=== PATIENT | female | born 1990 | race Caucasian/White ===

== ENCOUNTER → 2017-05-29 | Outpatient (CLI) | payer OTHER ==
[~2017-05-29] MED LIST: AZITTAB PO; BCPILLS PO; IBUP-1050 PO; MULTTAB PO
[2017-05-29 18:24] LABS: CHOLESTEROL/HDL RATIO 2.8
== END | disposition home or self-care (01) ==
LOC: C.LABPVFM 13:16
PROVIDERS: ATTEND Nurse Practitioner Family
DX: Z00.00 Encounter for general adult medical examination without abnormal findings (principal)

== ENCOUNTER → 2017-06-24 | Outpatient (CLI) | payer OTHER | END | disposition home or self-care (01) | LOC: C.PAPS 08:46 | PROVIDERS: ATTEND Obstetrics & Gynecology | DX: Z01.419 Encounter for gynecological examination (general) (routine) without abnormal findings (principal) ==

== ENCOUNTER → 2017-11-27 | Outpatient (CLI) | payer OTHER ==
[2017-11-27 10:07] LABS: BASO % 0.5 %; BASO ABS # 0.03 K/uL (0-0.2); EOS % 2.4 %; EOS ABS # 0.15 K/uL (0-0.5); HEMOGLOBIN 16.6 g/dL (12.0-16.0); IG# 0.01 K/uL (0.00-0.02); LYMPH % 48.9 %; LYMPH ABS # 3.03 K/uL (1.2-3.4); MEAN CELL VOLUME 98.9 fL (80-100); MEAN CORPUSCULAR HEMOGLOBIN 34.9 pg (25-34); MEAN CORPUSCULAR HGB CONC 35.3 g/dl (32-36); MEAN PLATELET VOLUME 11.1 fL (7.4-10.4); MONO % 4.7 %; MONO ABS # 0.29 K/uL (0.11-0.59); NEUT % 43.3 %; NEUT ABS # 2.69 K/uL (1.4-6.5); PLATELET COUNT 178 K/uL (130-400); RED CELL DISTRIBUTION WIDTH SD 42.9 fL (36.4-46.3)
[2017-11-27 10:18] LABS: PTT PATIENT 27.7 SECONDS (21.0-31.0)
[2017-11-27 10:27] LABS: BLOOD UREA NITROGEN 11 mg/dl (7-18); CALCIUM 9.6 mg/dl (8.5-10.1); CARBON DIOXIDE 27 mmol/L (21-32); CREATININE 0.76 mg/dl (0.60-1.20); GLUCOSE 73 mg/dl (70-99); POTASSIUM 3.7 mmol/L (3.5-5.1); SODIUM 140 mmol/L (136-145)
== END | disposition home or self-care (01) ==
LOC: C.LAB 09:22
PROVIDERS: ATTEND Physician Assistant
DX: Z01.818 Encounter for other preprocedural examination (principal); M79.89 Other specified soft tissue disorders

== ENCOUNTER → 2017-12-08 | Day surgery (SDC) | payer OTHER ==
[2017-11-27 10:04] VITALS: Ht 167.6 cm; Wt 61.4 kg
[~2017-12-08] VITALS: Ht 167.6 cm; Wt 61.4 kg
[~2017-12-08] MED LIST changes: +ACETAMINOPHEN 325 MG TAB PO PRN; +ACETAMINOPHEN IV 1,000 MG in EMPTY BAG 0 ML IV PRN; +ACETAMINOPHEN IV 650 MG in EMPTY BAG 0 ML IV PRN; +ATROPINE SULFATE 0.1 MG/ML 5ML SYR IV PRN; -AZITTAB PO; +BUPIVACAINE 0.25% 30 ML VIAL ONE; +CEFAZOLIN 2000MG IV PUSH 15 ML IV SCH; +EpHEDrine SULFATE INJ 50 MG/ML AMP IV PRN; +FENTANYL CITRATE INJ 50 MCG/1 ML 2 ML VIAL ONE; -IBUP-1050 PO; +LACTATED RINGER'S 1000ML 1,000 ML IV SCH; +LIDOCAINE HCL 1% 20 ML VIAL ONE; +LIDOCAINE HCL 2% 2 ML VIAL (20MG/ML) ONE; +LIDOCAINE/EPINEPHRINE 1% 20 ML VIAL ONE; +METOCLOPRAMIDE HCL INJ 5 MG/ML 2 ML VIAL IV PRN; +MIDAZOLAM HCL 1 MG/ML 2ML VIAL ONE; -MULTTAB PO; +ONDANSETRON INJ 2 MG/ML 2 ML VIAL IV PRN; +ONDANSETRON INJ 2 MG/ML 2 ML VIAL ONE; +OXYCODONE/ACETAMINOPHEN 5-325 TAB PO PRN; +PROPOFOL IV EMULSION 10 MG/ML 20 ML VIAL IV ONE; +SODIUM CHLORIDE 0.9% 1000ML 1,000 ML IV SCH
--- NOTE | 2017-12-08 09:20 | History & Physical Bridge - [place] ---
H&P Re-Evaluation Bridge Note: I have examined the patient, reviewed the History & Physical and in the interval since the performance of the History & Physical I have noted the following changes of clinical significance: No changes noted
--- NOTE | 2017-12-08 10:14 | [facility] Post Operative Brief Note ---
Immediate Operative Summary Operative Date Dec 08, 2017. Pre-Operative Diagnosis Painful Nodule scar Post-Operative Diagnosis Same as pre-op Procedure(s) Performed Excision painful nodule along scar Surgeon Research Development Manager Surgeon(s) Lazaro MCINTOSH Estimated Blood Loss 1ML Findings Consistent with Post-Op Diagnosis Specimens A. Painful nodule scar 2 cm Anesthesia Type MAC Complication(s) none Disposition Disposition: Surgical ICU
--- NOTE | 2017-12-08 10:25 | Discharge Instructions ---
Discharge Instructions Date of Service Dec 08, 2017. Admission Reason for Admission: Soft Tissue Mass Discharge Discharge Diagnosis / Problem: soft tissue mass Discharge Goals Goal(s): Decrease discomfort Activity Recommendations Activity Limitations: as noted below ACTIVITY RECOMMENDATIONS: __Normal activities _x_No bending, lifting or straining __No driving __Driving allowed when you are off pain medications _x_Walking permitted __You should have help at home for ___ days DRESSINGS: __No dressings required __Keep dressings dry/in place until first office visit _x_Remove dressings _in 2 days__ and leave dressings off _x_Apply ice _2-3__ days. Aim for icing area 20 minutes at a time, as often as you can while awake __Remove dressings and reapply garment __Apply antibiotic ointment (Bacitracin, Neosporin, etc) to wounds 3-4 times/ day for 10 days BATHING: _x_Keep dressings dry __Sponge bathing permitted _x_Showering permitted in 48 hours. Ok to let soapy water run over the incision , gently pat dry. No lotions/ointment on incision _x_No swimming, hot tubs or soaking in a tub MEDICATIONS: Resume previous medications unless instructed otherwise by your surgeon. _x_Do not use aspirin, Motrin, Advil or Ibuprofen as these may promote bleeding. Please use Tylenol. _x_Prescription(s) provided:pain medication was provided at your last office visit. OTHER INSTRUCTIONS: __Record drain output 2-3 times per day SPECIAL CARE INSTRUCTIONS: * It is normal to have a mild fever after surgery. If your temperature is higher than 101.5 degrees F, please call the office at [phone]. * Constipation is a typical side effect of pain medication. An over-the- counter stool softener will help relieve this. * Leaking around surgical drains may occur and should not cause concern. Sometimes these drains become clogged. If this happens, remove the bulb and milk the clot out of the tube, then replace the bulb. * Drainage from wounds after liposuction is normal and should be expected. Garments will become soiled. You should protect furniture and bedding. This drainage should mostly subside within 2-3 days. Leave garments in place unless instructed to remove them. * If you have unusual drainage from a wound or are concerned you have an infection or have any questions or concerns, please call the office at [phone]. FOLLOW UP VISIT: If not already scheduled, please call the office, , when you return home after surgery to schedule an appointment to be seen in _14__ days. . Current Hospital Diet Patient's current hospital diet: Discharge Diet Recommended Diet: Regular Diet Procedures Procedures Performed: Excision painful nodule along scar Pending Studies Studies pending at discharge: yes List of pending studies: pathology Medical Emergencies . Who to Call and When: Medical Emergencies: If at any time you feel your situation is an emergency, please call 911 immediately. . Non-Emergent Contact Non-Emergency issues call your: Primary Care Provider, Surgeon . "Provider Documentation" section prepared by Corrina Paige. . VTE Core Measure Inpt VTE Proph given/why not?: SCD's [place] Drug Monitoring Program Search Results: no issues identified
--- NOTE | 2017-12-08 10:48 | Anesthesia Progress Nt - [facility] ---
Anesthesia Post Op Note Date & Time Dec 08, 2017 at 10:48 Vital Signs Pain Intensity: 0 Vital Signs Past 12 Hours Date Time Temp Pulse Resp B/P (MAP) Pulse Ox O2 Delivery O2 Flow Rate FiO2 12/08/17 10:18 36.3 56 16 94/58 (70) 99 Room Air 12/08/17 09:10 36.6 56 16 98/59 (72) 100 Room Air Notes Mental Status: alert / awake / arousable, participated in evaluation Pt Amnestic to Procedure: Yes Nausea / Vomiting: adequately controlled Pain: adequately controlled Airway Patency, RR, SpO2: stable & adequate BP & HR: stable & adequate Hydration State: stable & adequate Anesthetic Complications: no major complications apparent
[2017-12-08 10:50] VITALS: BP 87/54; PULSE 50; O2SAT 97
--- NOTE | 2017-12-08 10:51 | OPERATIVE REPORT ---
DATE OF OPERATION: 12/08/2017 PREOPERATIVE DIAGNOSIS: Painful soft tissue mass, left lower abdomen. POSTOPERATIVE DIAGNOSIS: Same. PROCEDURE: Excision of painful nodule along scar left abdomen. SURGEON: Dr. Jacki Heller. SCREENING UNIT REGISTERED NURSE: Corrina Paige PA-C. ANESTHESIA: Local with sedation. COMPLICATIONS: None. INDICATION FOR THE PROCEDURE: The patient is a 27-year-old female who is status post section. This was performed about 4 years ago. Over the past 1 year, she has had a nodule on her left lower abdomen along the scar, which has increased in size and has become painful and she desired excisional biopsy. BRIEF DESCRIPTION OF THE PROCEDURE: The risks, benefits and alternatives of the procedure were explained to the patient who agreed and signed consent. She was identified and marked in the preoperative holding area. She was brought to the operating room where she was positioned supine and placed under sedation without incident. Surgical site was prepped and draped sterilely. A timeout procedure was performed. Mixture of 1% lidocaine with epinephrine and 0.25% Marcaine plain was used to anesthetize the area. While the nodularity was palpable superior to the scar, I performed excision of left lateral aspect of the scar as an access point. This was performed using a 15 blade scalpel and the incision was deepened using electrocautery. Scar was passed off as a specimen. Incision was deepened until the palpable nodularity was identified. This was carefully dissected using an Allis clamp and electrocautery to dissect this well circumscribed mass. It was located entirely within soft tissue and did not have any fascial extension. It measured 2 cm in its maximal diameter upon removal. Hemostasis was achieved with electrocautery. Wound was reapproximated using 2-0 Vicryl deep dermal sutures, 3-0 PDS superficial dermal sutures, 4-0 Monocryl running subcuticular suture. Total wound closure length was 5 cm. The procedure was tolerated well. The patient was awakened and transferred to recovery room in satisfactory condition. I attest to the content of the Intraoperative Record and any orders documented therein. Any exception s are noted below.
== END | disposition home or self-care (01) ==
LOC: X.SURG 08:53
PROVIDERS: ATTEND Plastic Surgery
DX: N80.6 Endometriosis in cutaneous scar (principal); F17.200 Nicotine dependence, unspecified, uncomplicated; Z88.2 Allergy status to sulfonamides; Z88.1 Allergy status to other antibiotic agents

== ENCOUNTER 2021-11-28 10:21 | Inpatient (IN) ==
[2021-11-28 10:59] LABS: Basophils # (auto) 0.01 K/uL (0-0.2); Basophils % (auto) 0.1 %; Eosinophils # (auto) 0.06 K/uL (0-0.5); Eosinophils % (auto) 0.9 %; Hematocrit (blood only) 38.7 % (37-47); Hemoglobin 13.4 g/dL (12.0-16.0); Immature Granulocytes # (auto) 0.02 K/uL (0.00-0.02); Immature Granulocytes % (auto) 0.3 %; Lymphocytes # (auto) 1.26 K/uL (1.2-3.4); Lymphocytes % (auto) 18.3 %; Mean Corpuscular Hemoglobin 35.4 pg (25-34); Mean Corpuscular Hgb Conc 34.6 g/dL (32-36); Mean Corpuscular Volume 102.1 fL (80-100); Mean Platelet Volume 10.2 fL (7.4-10.4); Monocytes # (auto) 0.57 K/uL (0.11-0.59); Monocytes % (auto) 8.3 %; Neutrophils # (auto) 4.95 K/uL (1.4-6.5); Neutrophils % (auto) 72.1 %; Platelet Count 225 K/uL (130-400); RDW Coefficient of Variation 12.2 % (11.5-14.5); RDW Standard Deviation 45.5 fL (36.4-46.3); Red Blood Count 3.79 M/uL (4.2-5.4); White Blood Count 6.87 K/uL (4.8-10.8)
[2021-11-28 11:24] LABS: Albumin Globulin Ratio 1.2 (0.9-2); Albumin Level 3.7 gm/dl (3.4-5.0); BUN Creatinine Ratio 14.9 (10-20); Bilirubin,Total 0.6 mg/dl (0.2-1.0); Creatinine Clr Calc Pharmacy 74.2 ml/min; Est GFR (African American) 84.7 ml/min; Est GFR (Non-African American) 73.1 ml/min; Globulin 3.1 gm/dl (2.5-4.0); Potassium 3.6 mmol/L (3.5-5.1); Total Protein 6.8 gm/dl (6.0-8.3)
[2021-11-28] MEDS ORDERED: ONDANSETRON INJ 2 MG/ML 2 ML VIAL IV STA (11:53)
[2021-11-28] MEDS ORDERED: cefTRIAXone SODIUM 2,000 MG/70 ML BAG IV STA (11:53)
[2021-11-28] MEDS ORDERED: KETOROLAC TROMETHAMINE 15 MG/ML VIAL IV STA (11:53)
[2021-11-28] MEDS ORDERED: SODIUM CHLORIDE 0.9% 1000ML 1,000 ML IV ONE (11:53)
--- NOTE | 2021-11-28 12:08 | Emergency Department Note ---
Impression & Plan Acute pyelonephritis, Renal abscess, right ED Provider Note CHIEF COMPLAINT: Flank and abdominal pain, urinary symptoms HISTORY OF PRESENTING ILLNESS: This is a 31-year-old female who presents to the emergency department by private vehicle with complaint of flank and abdominal pain and urinary symptoms that has been ongoing for about 1 week. Patient states about 2-1/2 weeks ago she started to have yeast infection symptoms, this cleared up after taking Diflucan and ankp-evc-ulcevkg miconazole, but then she continued to have urinary pressure. She states about 6 days ago she started to develop pain in her right flank and abdomen that has been progressively getting worse, is worse with movement and better with rest and she describes the pain as a constant dull ache. She currently rates her pain 5/10. She has not taken any Tylenol or ibuprofen today. She has been taking ibuprofen previously which did help with the pain somewhat. She states that she initially saw her PCP and they started her on ciprofloxacin which she has been taking and this is her fifth day of treatment. She notes that she was having some fevers and chills at home and that seemed to improve after starting the Cipro, but her pain has not improved at all. Yesterday she had an outpatient CT scan of the abdomen/pelvis and today she was called by her provider telling her to come to the emergency department for evaluation. She states that the CT scan showed bilateral pyelonephritis. She denies chest pain, chest tightness, shortness of breath, cough or URI symptoms. REVIEW OF SYSTEMS: A complete 10 point review of systems was reviewed with the patient with pertinent positives and negatives as per history of present illness. All else were negative. PAST MEDICAL HISTORY: Depression, anxiety, history of LEEP procedure SOCIAL HISTORY: Lives at home, she is a current everyday smoker ALLERGIES: Reviewed in chart and with the patient PHYSICAL EXAM: CONSTITUTIONAL: Pleasant and cooperative. Nontoxic-appearing and in no acute distress. Mildly dehydrated, but otherwise well appearing and well nourished. HEENT: Normocephalic, atraumatic. Pharynx normal. Tacky mucous membranes. NECK: Supple, full active range of motion without discomfort. RESPIRATORY: Clear to auscultation bilaterally with no wheezing, crackles, rhonchi or stridor. Equal expansion bilaterally. CARDIOVASCULAR: Regular rate and rhythm with no murmurs, rubs or gallops. Normal peripheral perfusion. No edema. GASTROINTESTINAL: Tender to palpation in the right mid and lower abdomen and right flank, no rebound tenderness or guarding. Abdomen is otherwise nontender, soft and nondistended. Bilateral CVA tenderness to percussion, significantly more on the right compared to the left. No palpable masses or HSM. Bowel sounds present in all quadrants. MUSCULOSKELETAL: Full range of motion of all joints without discomfort. INTEGUMENTARY: No rash or other significant dermatologic conditions noted. NEUROLOGIC: Alert and oriented X 4 with normal affect. Normal strength and sensation in all four extremities. Normal speech. Normal gait observed. ED COURSE AND MEDICAL DECISION MAKING: CC: Patient presenting with complaint of flank and abdominal pain with urinary symptoms DIFFERENTIAL DIAGNOSIS: Includes, but not limited to UTI, pyelonephritis, bacteremia/sepsis, dehydration, renal abscess, among others. INTERPRETATION OF LABS: No leukocytosis, no anemia, normal platelets, no significant electrolyte abnormalities, normal renal function, normal liver enzymes and lipase. UA is negative. Urine negative. COVID-19 negative. MEDICATION RECONCILIATION: I attest that I have personally reviewed the patient's current medication list. INITIAL VITAL SIGNS REVIEW: I reviewed the patient's initial vital signs and interpret them as follows: T: Afebrile; BP: Normotensive; HR: Within normal limits; RR: Within normal limits; Pulse Ox: Within normal limits on room air. MDM SUMMARY: Initial orders were placed for labs and urinalysis by nursing staff under critical pathway protocols. Patient was initially evaluated in a triage room due to high volume and long wait times. A history and limited physical exam performed. Patient is alert and oriented, in no acute distress, afebrile and nontoxic- appearing. She does have tenderness to palpation of the right mid lower abdomen and right flank with right CVA tenderness. No acute abdomen. Lab results were reviewed, noting no leukocytosis and a normal renal function. Urinalysis and urine are still pending. Review of the patient's chart noting CT of the abdomen/pelvis from 11/27/2021 which noted bilateral pyelonephritis, right greater than left with a few subcentimeter hypodense foci in the right kidney concerning for developing renal abscesses. No bowel wall thickening or obstruction and a normal appendix were also noted. The patient was eventually moved from the waiting room to an ED exam room. Additional orders were placed for blood cultures x2 and lactic acid. She was given IV fluid bolus for hydration, IV Toradol for pain, IV Zofran for nausea, 2 g IV Rocephin to treat the pyelonephritis. I spoke on the phone with Dr. Breaux, [facility] hospitalist, who agrees to evaluate the patient for admission. Patient was also discussed with Dr. Torres, the ED attending, who agrees with my assessment, plan, and disposition. Patient reassessed multiple times throughout ED stay, she has remained hemodynamically stable and afebrile and notes that she is feeling improved after the above treatments. The patient was updated on all results and plan for admission, all questions were answered at this time and she was agreeable to this plan. The patient was stable at the time of admission. The chart was completed utilizing [employer] Speech voice recognition software. Grammatical errors, random word insertions, pronoun errors, and incomplete sentences are an occasional consequence of this system due to software limita tions, ambient noise, and hardware issues. Any formal questions or concerns about the content, text, or information contained within the body of this dictation should be directly addressed to the nurse practitioner for clarification. Past Med/Surg History Medical History Cervical intraepithelial neoplasia grade 3 Surgical History H/O colonoscopy H/O colposcopy with cervical biopsy H/O laparoscopy History of esophagogastroduodenoscopy (EGD) History of gynecologic surgery D&E S/P LEEP Family History Denies family history of Ovarian cancer Breast cancer Colorectal cancer Social History (Updated 11/28/21 @ 14:07 by Elena Breaux DO) Smoking Status: Current every day smoker Tobacco Type: Cigarettes packs per day: 0.5; Cigarettes Per Day: 10; Hx Alcohol Use: Yes Alcohol Intake Frequency: Monthly or Less Hx Substance Use: Yes Prescribed Medications: Marijuana Preferred Language: Latvian Feels Safe at Home: Yes Allergies Allergies Allergy/AdvReac Type Severity Reaction Status Date / Time Sulfa (Sulfonamide Allergy Intermediate HIVES Verified 11/28/21 13:12 Antibiotics) chlorhexidine Allergy Unknown Verified 11/28/21 13:12 nickel Allergy Unknown ITCHING Verified 11/28/21 13:12 sulfamethoxazole Allergy Unknown Verified 11/28/21 13:12 [From Bactrim] trimethoprim [From Bactrim] Allergy Unknown Verified 11/28/21 13:12 amoxicillin Allergy Rash Unverified 11/28/21 13:12 Home Meds Home Medications Medication Instructions Recorded Confirmed bupropion HCl 100 mg tablet 150 mg PO QAM 11/28/21 11/28/21 fluoxetine 20 mg capsule 20 mg PO DAILY 11/28/21 11/28/21 norgestrel 0.3 mg-ethinyl 1 tab PO HS 11/28/21 11/28/21 estradiol 30 mcg tablet (Joseph (28)) Results & Data (ED) Vital Signs Vital Signs - 24 hr 11/28/21 10:36 11/28/21 13:43 Temperature 36.4 C L 36.8 C Temperature Source Temporal Artery Scan Oral Pulse Rate 81 Pulse Rate [Left Finger] 66 Pulse Rhythm Regular Pulse Rhythm [Left Finger] Regular Pulse Strength Normal Pulse Strength [Left Finger] Normal Respiratory Rate 16 18 Respiratory Effort / Characteristics Non-Labored Spontaneous Non-Labored Spontaneous Respiratory Depth Normal Normal Respiratory Pattern Regular Regular Blood Pressure 125/78 Blood Pressure [Right Arm] 113/66 Blood Pressure Mean 93 Blood Pressure Mean [Right Arm] 81 Blood Pressure Position Sitting Blood Pressure Position [Right Arm] Sitting Pulse Oximetry 99 95 Oxygen Delivery Method Room Air Room Air Sepsis Recent Fever Within 48 Hours No Sepsis New/Unexplained Change in Mental Status No Sepsis Action Taken by Nursing No Action Required Laboratory Data Result diagrams: 11/28/21 10:45 11/28/21 10:45 Lab Results 11/28/21 11/28/21 11/28/21 Range/Units 10:45 10:45 12:59 WBC 6.87 (4.8-10.8) K/uL RBC 3.79 L (4.2-5.4) M/uL Hgb 13.4 (12.0-16.0) g/dL Hct 38.7 (37-47) % MCV 102.1 H (80-100) fL MCH 35.4 H (25-34) pg MCHC 34.6 (32-36) g/dL RDW Std Deviation 45.5 (36.4-46.3) fL RDW Coeff of Kurt 12.2 (11.5-14.5) % Plt Count 225 (130-400) K/uL MPV 10.2 (7.4-10.4) fL Immature Gran % (Auto) 0.3 % Neut % (Auto) 72.1 % Lymph % (Auto) 18.3 % Luna % (Auto) 8.3 % Eos % (Auto) 0.9 % Baso % (Auto) 0.1 % Neut # (Auto) 4.95 (1.4-6.5) K/uL Lymph # (Auto) 1.26 (1.2-3.4) K/uL Luna # (Auto) 0.57 (0.11-0.59) K/uL Eos # (Auto) 0.06 (0-0.5) K/uL Baso # (Auto) 0.01 (0-0.2) K/uL Immature Gran # (Auto) 0.02 (0.00-0.02) K/uL Sodium 140 (136-145) mmol/L Potassium 3.6 (3.5-5.1) mmol/L Chloride 105 (98-107) mmol/L Carbon Dioxide 31 (21-32) mmol/L Anion Gap 4 (3-11) BUN 15 (6-23) mg/dl Creatinine 1.01 (0.6-1.2) mg/dl Est Cr Clr Drug Dosing 74.2 ml/min Est GFR ( Amer) 84.7 ml/min Est GFR (Non-Af Amer) 73.1 ml/min BUN/Creatinine Ratio 14.9 (10-20) Glucose 88 (70-99(Fasting)) mg/dl Lactate (0.4-2.0) mmol/L Calcium 9.0 (8.5-10.1) mg/dl Total Bilirubin 0.6 (0.2-1.0) mg/dl AST 13 (13-39) U/L ALT 16 (7-52) U/L Alkaline Phosphatase 109 H (34-104) U/L Total Protein 6.8 (6.0-8.3) gm/dl Albumin 3.7 (3.4-5.0) gm/dl Globulin 3.1 (2.5-4.0) gm/dl Albumin/Globulin Ratio 1.2 (0.9-2) Lipase 22 (11-82) U/L Urine Color Yellow Urine Appearance Clear (Clear) Urine pH 5.5 (4.5-7.5) Ur Specific [place] 1.016 (1.000-1.030) Urine Protein Negative (Negative) Urine Glucose (UA) Negative (Negative) Urine Ketones Negative (Negative) Urine Blood Negative (Negative) Urine Nitrite Negative (Negative) Urine Bilirubin Negative (Negative) Urine Urobilinogen Negative (Negative) Ur Leukocyte Esterase Negative (Negative) Urine Test (Negative) SARS-CoV-2, RNA, NAAT (NEGATIVE) 11/28/21 11/28/21 11/28/21 Range/Units 12:59 12:59 13:07 WBC (4.8-10.8) K/uL RBC (4.2-5.4) M/uL Hgb (12.0-16.0) g/dL Hct (37-47) % MCV (80-100) fL MCH (25-34) pg MCHC (32-36) g/dL RDW Std Deviation (36.4-46.3) fL RDW Coeff of Kurt (11.5-14.5) % Plt Count (130-400) K/uL MPV (7.4-10.4) fL Immature Gran % (Auto) % Neut % (Auto) % Lymph % (Auto) % Luna % (Auto) % Eos % (Auto) % Baso % (Auto) % Neut # (Auto) (1.4-6.5) K/uL Lymph # (Auto) (1.2-3.4) K/uL Luna # (Auto) (0.11-0.59) K/uL Eos # (Auto) (0-0.5) K/uL Baso # (Auto) (0-0.2) K/uL Immature Gran # (Auto) (0.00-0.02) K/uL Sodium (136-145) mmol/L Potassium (3.5-5.1) mmol/L Chloride (98-107) mmol/L Carbon Dioxide (21-32) mmol/L Anion Gap (3-11) BUN (6-23) mg/dl Creatinine (0.6-1.2) mg/dl Est Cr Clr Drug Dosing ml/min Est GFR ( Amer) ml/min Est GFR (Non-Af Amer) ml/min BUN/Creatinine Ratio (10-20) Glucose (70-99(Fasting)) mg/dl Lactate 0.6 (0.4-2.0) mmol/L Calcium (8.5-10.1) mg/dl Total Bilirubin (0.2-1.0) mg/dl AST (13-39) U/L ALT (7-52) U/L Alkaline Phosphatase (34-104) U/L Total Protein (6.0-8.3) gm/dl Albumin (3.4-5.0) gm/dl Globulin (2.5-4.0) gm/dl Albumin/Globulin Ratio (0.9-2) Lipase (11-82) U/L Urine Color Urine Appearance (Clear) Urine pH (4.5-7.5) Ur Specific [place] (1.000-1.030) Urine Protein (Negative) Urine Glucose (UA) (Negative) Urine Ketones (Negative) Urine Blood (Negative) Urine Nitrite (Negative) Urine Bilirubin (Negative) Urine Urobilinogen (Negative) Ur Leukocyte Esterase (Negative) Urine Test Negative (Negative) SARS-CoV-2, RNA, NAAT NEGATIVE (NEGATIVE) Administered Medications Discontinued Medications Ceftriaxone Sodium (Rocephin) 2,000 mg in 70 mls @ 140 mls/hr IV NOW STA Stop: 11/28/21 12:22 Last Infusion: 11/28/21 14:06 Dose: 0 mls/hr Documented by: [id number] Admin: 11/28/21 13:13 Dose: 140 mls/hr Documented by: [id number] Sodium Chloride (Nss 1000ml) 1,000 mls @ 999 mls/hr IV .Q1H1M ONE Stop: 11/28/21 12:53 Last Infusion: 11/28/21 14:08 Dose: 0 mls/hr Documented by: [id number] Admin: 11/28/21 12:59 Dose: 999 mls/hr Documented by: [id number] Ketorolac Tromethamine (Ketorolac Tromethamine 15 Mg/Ml Vial) 15 mg IV NOW STA Stop: 11/28/21 11:54 Last Admin: 11/28/21 13:00 Dose: 15 mg Documented by: [id number] Ondansetron HCl (Ondansetron Inj 2 Mg/Ml 2 Ml Vial) 4 mg IV NOW STA Stop: 11/28/21 11:54 Last Admin: 11/28/21 13:00 Dose: 4 mg Documented by: [id number] Discharge Plan Visit Data Chief Complaint: Abdominal Pain Stated Complaint: ABDOM PAIN, BACK PAIN, FEVER, NAUSEA, LEG PAIN ED Provider: Federico Torres ED Midlevel Provider: Nayla Gamboa Discharge Problem: Acute pyelonephritis, Renal abscess, right Patient Disposition: Admitted As Inpatient Condition: Good Forms Stand Alone Forms: [facility], Virtual Emergency Department, Important Visit Information Prescriptions Prescriptions: No Action bupropion HCl [Wellbutrin] 100 mg Tablet 150 mg PO QAM RF: 0 fluoxetine 20 mg capsule 20 mg PO DAILY RF: 0 [place]le (28) 0.3-30 mg-mcg tablet 1 tab PO HS RF: 0 Referrals Referrals: Jenny Webster DO [Primary Care Provider] -
[2021-11-28 13:09] LABS: Appearance Urine Clear (Clear); Bilirubin Urine Negative (Negative); Blood Urine Negative (Negative); Color Urine Yellow; Glucose Urine UA Negative (Negative); Ketones Urine Negative (Negative); Leukocyte Esterase Urine Negative (Negative); Nitrite Urine Negative (Negative); Protein Urine Negative (Negative); Specific Gravity Urine 1.016 (1.000-1.030); Urobilinogen Urine Negative (Negative); pH Urine 5.5 (4.5-7.5)
[2021-11-28 13:20] LABS: Pregnancy Test, Urine Negative (Negative)
--- NOTE | 2021-11-28 13:53 | History & Physical Report ---
Date of Service November 28, 2021 Assessment & Plan (1) Acute pyelonephritis: Plan: Recent urinary tract infection that developed into complicated acute pyelonephritis with subsequent renal abscess formation. The patient is not septic at this time. Continue with IV Rocephin pending urology recommendations and will also request records from recent [facility] visit for urine culture from sample prior to starting ciprofloxacin. (2) Renal abscess, right: Plan: IV Rocephin as above. (3) Depression: Plan: Continue Wellbutrin and fluoxetine per home regimen. (4) DVT prophylaxis: Plan: Lovenox Full code Disposition-pending urology recommendations and clinical improvement. Elena Breaux DO [facility] Hospitalist History of Present Illness Chief Complaint: abnormal CT scan Primary Care Provider: Jenny Webster DO 31-year-old female presents with ongoing UTI symptoms for the past 1 to 2 weeks. She initially had vaginal itching without any discharge and took miconazole [id number] x2 then a course of Diflucan however pelvic pressure was present and continued. She then went to [facility] and reports a positive urinalysis. She was placed on ciprofloxacin and reports a fever for the first 3 days while on the ciprofloxacin. She took ibuprofen to help with the fever. Since that time she still has pelvic pressure when she is up and walking which is improved when she sitting or laying down. She denies any dysuria but still feels pressure when urinating. She does report right flank pain that she started noticing approximately 6 days ago. She came to the ER and underwent a CT abdomen pelvis with IV and oral contrast because of right lower quadrant abdominal pain and concern for appendicitis. She was found to have a normal appendix but evidence of pyelonephritis on the right with developing renal abscesses. She was called back in today for further evaluation and intravenous antibiotics. At this time she has no worsening of her symptoms but no improvement. She is afebrile and hemodynamically stable. She is oxygenating well on room air. She denies any chest pain, shortness of breath, fevers, chills or other issues today. She currently denies any vaginal discharge and has no concerns for or STDs at this time. Urine screen is negative. Allergies Allergy/AdvReac Type Severity Reaction Status Date / Time Sulfa (Sulfonamide Allergy Intermediate HIVES Verified 11/28/21 13:12 Antibiotics) chlorhexidine Allergy Unknown Verified 11/28/21 13:12 nickel Allergy Unknown ITCHING Verified 11/28/21 13:12 sulfamethoxazole Allergy Unknown Verified 11/28/21 13:12 [From Bactrim] trimethoprim [From Bactrim] Allergy Unknown Verified 11/28/21 13:12 amoxicillin Allergy Rash Unverified 11/28/21 13:12 Home Medications Medication Instructions Recorded Confirmed Type norgestrel 0.3 mg-ethinyl 1 tab PO DAILY #28 tab 11/15/21 11/28/21 Rx estradiol 30 mcg tablet (Joseph (28)) bupropion HCl 100 mg tablet 150 mg PO QAM 11/28/21 11/28/21 History fluoxetine 20 mg capsule 20 mg PO DAILY 11/28/21 11/28/21 History Past Med/Surg History Medical History Cervical intraepithelial neoplasia grade 3 Surgical History H/O colonoscopy H/O colposcopy with cervical biopsy H/O laparoscopy History of esophagogastroduodenoscopy (EGD) History of gynecologic surgery D&E S/P LEEP Family History Denies family history of Ovarian cancer Breast cancer Colorectal cancer Social History (Updated 11/28/21 @ 14:07 by Elena Breaux DO) Smoking Status: Current every day smoker Tobacco Type: Cigarettes packs per day: 0.5; Cigarettes Per Day: 10; Hx Alcohol Use: Yes Alcohol Intake Frequency: Monthly or Less Hx Substance Use: Yes Prescribed Medications: Marijuana Preferred Language: Urdu Feels Safe at Home: Yes Review of Systems Review of Systems: All systems reviewed and negative except as indicated above. Physical Exam Physical Exam: CONSTITUTIONAL: WNWD, vitals as above, generally well- appearing EYES: normal conjunctivae, no scleral icterus ENT: external ear and nose normal, MMM NECK: trachea midline RESPIRATORY: clear to auscultation bilaterally, no crackles, rales or wheezes, normal respiratory effort CARDIOVASCULAR: regular rate and rhythm, S1 and 2 heard without murmurs, gallops or rubs, no JVD, no peripheral edema CHEST: inspection of chest was normal GASTROINTESTINAL: normal bowel sounds, soft, TTP in RLQ, +CVA tenderness on the right MUSCULOSKELETAL: strength 5/5 throughout, head is normocephalic and atraumatic, SKIN: warm and dry, NEUROLOGIC: CN 2-12 grossly intact, no sensory deficit, normal cognition, normal speech, no tremor PSYCHIATRIC: alert cooperative and oriented to person, place and time. Euthymic mood, makes good eye contact, language grossly intact, recent and remote memory grossly intact. Results & Data Results & Data ([facility]) Vital Signs (Past 12 Hours) Vital Signs Temp Pulse Resp BP Pulse Ox 11/28/21 10:36 36.4 C L 81 16 125/78 99 Laboratory Results Short CBC 11/28/21 Range/Units 10:45 WBC 6.87 (4.8-10.8) K/uL Hgb 13.4 (12.0-16.0) g/dL Hct 38.7 (37-47) % Plt Count 225 (130-400) K/uL BMP 11/28/21 10:45 Sodium 140 Potassium 3.6 Chloride 105 Carbon Dioxide 31 BUN 15 Creatinine 1.01 Glucose 88 Calcium 9.0 Liver Function 11/28/21 Range/Units 10:45 Total Bilirubin 0.6 (0.2-1.0) mg/dl AST 13 (13-39) U/L ALT 16 (7-52) U/L Alkaline Phosphatase 109 H (34-104) U/L Albumin 3.7 (3.4-5.0) gm/dl Urine 11/28/21 Range/Units 12:59 Urine Color Yellow Urine Appearance Clear (Clear) Urine pH 5.5 (4.5-7.5) Ur Specific [place] 1.016 (1.000-1.030) Urine Protein Negative (Negative) Urine Glucose (UA) Negative (Negative) Diagnostic Findings [facility], [place] [phone] CT Scan Report Patient:СЕРГЕЙ KAMARA Admit Date:11/27/21 MR#:[id number] Address1:[address] Acct ID:[id number] Address2: Date:1990 [facility] Zip:[place] [address] Age:31 Location:CT Sex:F Room/Bed: Att Phy:Daniela Li PA-C Diagnosis:RIGHT LOWER QUAD ABD PAIN R/O APPY Luana Phy:Jenny Webster DO Service Date:11/27/21 [facility] Phy: Interpreting Phy:Anoop Harper MDAdmit Phy: Ordering Phy:Daniela Li PA-C cc: ~ ABDOMEN AND PELVIS CT WITH IV AND ORAL CONTRAST CT DOSE: 302.32 mGycm HISTORY: RIGHT LOWER QUAD ABD PAIN R/O APPY TECHNIQUE: Multiaxial CT images of the abdomen and pelvis were performed following the use of intravenous and oral contrast. A dose lowering technique was utilized adhering to the principles of ALARA. COMPARISON STUDY: Abdomen and pelvis CT January 31, 2019. FINDINGS: The lung bases are clear. No pneumoperitoneum. No pneumatosis. No fractures identified. A 6 mm hypodense lesion within the right hepatic dome. This is technically too small to characterize but favors a small cyst. The gallbladder is decompressed. There is trace periportal edema. This could be due to overhydration. The spleen, adrenal glands, and pancreas are unremarkable. The main portal vein is patent. Normal caliber abdominal aorta. Distended IVC and trace pelvic free fluid. This could also be due to overhydration. No hydronephrosis. There is mild bladder wall thickening. Mild enlargement and diffuse heterogeneous enhancement within the kidneys, right greater than left. There is also minimal right perinephric fat stranding/edema. Findings likely represent a bilateral pyelonephritis. There are few subcentimeter hypodense foci within the posterior interpolar region of the right kidney best seen on image 2 10 which measure up to 7 mm and may represent multiple developing renal abscesses. The uterus and bilateral adnexa are unremarkable. No bowel wall thickening or obstruction. Normal appendix. IMPRESSION: 1. Mild enlargement and diffuse heterogeneous enhancement within the kidneys, right greater than left. There is also minimal right perinephric fat stranding/edema. Findings likely represent a bilateral pyelonephritis. Recommend correlation with urinalysis. 2. There are few subcentimeter hypodense foci within the posterior interpolar region of the right kidney concerning for represent developing renal abscesses. 3. No bowel wall thickening or obstruction. 4. Normal appendix. ACT 112: Negative or not required by law. Electronically signed by: Anoop Harper M.D. 11/27/2021 6:20 PM Dictated:11/27/211812 Transcribed: 11/27/211812 Medications Administered Rocephin Code Status & VTE Plan Code Status Full VTE Prophylaxis Plan VTE Prophylaxis will be ordered: Yes
[2021-11-28] MEDS: ONDANSETRON INJ 2 MG/ML 2 ML VIAL IV PRN (18:05)
[2021-11-28] MEDS: KETOROLAC TROMETHAMINE 15 MG/ML VIAL IV PRN (18:05)
--- NOTE | 2021-11-28 19:24 | Urology Consultation ---
Date of Consultation November 28, 2021 Assessment & Plan (1) Acute pyelonephritis: (2) Renal abscess, right: The patient has been admitted by the hospitalist service, proceeding as follows: Primary service has requested urine culture results from the [facility] where patient recently received care. Patient has been initiated on antibiotics in form of Rocephin. Recommend continuing this antibiotic until urine culture results are obtained at which time antibiotics can be tailored based on the culture results Blood cultures have been sent we will also follow for results of these Concern the patient has developing renal abscess in the right kidney. Any developing abscesses are noted to be subcentimeter and therefore too small for surgical or interventional radiology drainage. Would recommend monitoring the patient clinically and if she fails to show clinical improvement in the next 1 to 2 days consideration can be given to reimaging the patient with either a CT scan of the abdomen and pelvis or renal ultrasound Supervising Physician Co-Signing Physician Notes Discussed patient with LEONARDO. Agree with plan. Recommend antibiotics. No drainable abscess at this time. No need for further imaging unless clinically worsens. If develops drainable abscess, would need transfer to tertiary care center as we do not have that capability here. History of Present Illness Reason for Consultation: Pyelonephritis with concern for developing renal abscess Attending Physician: Elena Breaux, History of Present Illness This is a 31-year-old female who presented to [facility] at the prompting of her primary care physician. Patient notes that approximately 2 weeks ago she developed some vaginal itching and she felt that she had a yeast infection. Patient said that she contacted her [employer] or Diflucan was prescribed alleviating her vaginal itching and yeast infection. She subsequently noted what she describes as "pressure" when she urinated. She did not report any dysuria or hematuria. As the patient subsequently felt she had a urinary tract infection she went to [facility] where patient had a urinalysis that reportedly showed concern for urinary tract infection placed and was placed on Cipro. The patient did report that she did have some fevers while she was taking this medication. The patient notes that she continued to have pressure while urinating but again denied any dysuria or hematuria. She subsequently developed right flank pain approximately 1 week ago. She had an outpatient CT scan which will be delineated below which was ordered by her primary care physician and based on the results the patient was instructed to come to the emergency department for further evaluation. In addition to urinary pressure the patient now complains of right flank pain but does not report any current fevers, shakes, or chills. In addition she denies any nausea vomiting. Since arrival to the emergency department today the patient has had labs and imaging which I independently reviewed. CBC revealed white blood cell count was within normal range. Hemoglobin and hematocrit are also normal as was her platelet count. Chemistry profile showed sodium, potassium, BUN, and creatinine were all within normal range. Lactic acid level was within the normal range. Urinalysis was performed and was not indicative of infection. A Covid test was performed and was noted to be negative. In addition on 11/27/2021 the patient did undergo a CT scan of her abdomen (as an outpatient) that showed that there was right perinephric fat stranding and edema patient was also noted to have diffuse heterogeneous enhancement of both kidneys which was felt to represent bilateral pyelonephritis. The right kidney showed concern for developing renal abscess as there was a few subcentimeter hypodense foci noted. At the time of my interview the patient was resting comfortably in bed and she was no distress. She has been noted to be afebrile and hemodynamically stable since admission. Allergies Allergy/AdvReac Type Severity Reaction Status Date / Time Sulfa (Sulfonamide Allergy Intermediate HIVES Verified 11/28/21 13:12 Antibiotics) chlorhexidine Allergy Unknown Verified 11/28/21 13:12 nickel Allergy Unknown ITCHING Verified 11/28/21 13:12 sulfamethoxazole Allergy Unknown Verified 11/28/21 13:12 [From Bactrim] trimethoprim [From Bactrim] Allergy Unknown Verified 11/28/21 13:12 amoxicillin Allergy Rash Unverified 11/28/21 13:12 Home Medications Medication Instructions Recorded Confirmed Type bupropion HCl 100 mg tablet 150 mg PO QAM 11/28/21 11/28/21 History fluoxetine 20 mg capsule 20 mg PO DAILY 11/28/21 11/28/21 History norgestrel 0.3 mg-ethinyl 1 tab PO HS 11/28/21 11/28/21 History estradiol 30 mcg tablet (Joseph (28)) Patient History Medical History Cervical intraepithelial neoplasia grade 3 Surgical History H/O colonoscopy H/O colposcopy with cervical biopsy H/O laparoscopy History of esophagogastroduodenoscopy (EGD) History of gynecologic surgery D&E S/P LEEP Family History Denies family history of Ovarian cancer Breast cancer Colorectal cancer Social History Smoking Status: Current every day smoker Tobacco Type: Cigarettes packs per day: 0.5; Cigarettes Per Day: 0.5-1 pack/day; Hx Alcohol Use: No Hx Substance Use: Yes Prescribed Medications: Marijuana Last Used Substance: Days (ago) Preferred Language: Armenian Dry Roller Required: No Beliefs That Will Affect Care: None Current Living Situation: Family Feels Safe at Home: No Assistive Devices: None Review of Systems Constitutional: + fever (Resolved); no chills Eyes: no diplopia Ear, Nose, Mouth, Throat: no ear pain Respiratory: no cough Cardiovascular: no chest pain Gastrointestinal: no abdominal pain, no nausea and no vomiting Genitourinary: as per Subjective / HPI and + flank pain (Right sided); no dysuria Musculoskeletal: + back pain (Right flank) Integumentary: no rash Neurologic: no localized weakness Physical Exam Constitutional: well developed and well nourished; no acute distress Eyes: no conjunctival abnormality ENMT: Ears: no hearing impairment Mouth: no oropharynx abnormality Neck: trachea midline Respiratory: normal respiratory effort; no respiratory distress and no labored breathing Cardiovascular: Rate/Rhythm: regular rate and regular rhythm Gastrointestinal (Abdomen): Soft, nontender, nondistended Musculoskeletal: No calf tenderness Skin: no rashes Neurologic: moves all extremities Psychiatric: A+Ox3, euthymic affect Genitourinary: + CVA tenderness (Right sided noted with percussion) Results & Data ([facility]) Vital Signs (Past 12 Hours) Vital Signs Temp Pulse Pulse Resp BP BP Pulse Ox 11/28/21 16:50 36.8 C 70 16 113/75 100 11/28/21 15:00 70 18 95 11/28/21 13:43 36.8 C 66 18 113/66 95 02/10/22 10:36 36.4 C L 81 16 125/78 99 PG Care Time/CCT Total # of Minutes Spent Total Time Spent with Patient: Total time spent is greater than 50% in coordination of care (as documented) at patient's floor/unit and/or counseling patient: Coding Level of Care Code 74631 Inpt Consult Level 5 Diagnoses Acute pyelonephritis N10 Renal abscess, right N15.1
[2021-11-28] MEDS: ACETAMINOPHEN 325 MG TAB PO PRN (23:02)
[2021-11-29 06:37] LABS: Hemoglobin 11.5 g/dL (12.0-16.0); Mean Corpuscular Hemoglobin 34.3 pg (25-34); Mean Corpuscular Hgb Conc 33.8 g/dL (32-36); Mean Corpuscular Volume 101.5 fL (80-100); Mean Platelet Volume 10.2 fL (7.4-10.4); Platelet Count 198 K/uL (130-400); RDW Standard Deviation 44.7 fL (36.4-46.3); Red Blood Count 3.35 M/uL (4.2-5.4); White Blood Count 7.93 K/uL (4.8-10.8)
[2021-11-29 07:00] LABS: BUN Creatinine Ratio 17.1 (10-20); Calcium 8.1 mg/dl (8.5-10.1); Creatinine Clr Calc Pharmacy 91.4 ml/min; Potassium 3.5 mmol/L (3.5-5.1)
[2021-11-29] MEDS: ONDANSETRON INJ 2 MG/ML 2 ML VIAL IV PRN (07:09)
[2021-11-29] MEDS: ENOXAPARIN INJ 40 MG/0.4 ML SYR SQ SCH (07:09)
[2021-11-29] MEDS: KETOROLAC TROMETHAMINE 15 MG/ML VIAL IV PRN (07:09)
[2021-11-29] MEDS: buPROPion HCl 75 MG TABLET PO SCH (09:36)
[2021-11-29] MEDS: FLUoxetine HCL 20 MG CAP PO SCH (09:36)
--- NOTE | 2021-11-29 10:58 | Urology Progress Note ---
Date of Service November 29, 2021 Assessment & Plan (1) Acute pyelonephritis: Plan: 31yo F admitted with pyelonephritis and concerns of possible developing right renal abscess. - Plan of care reviewed with Dr. Kyle. - CTAP reviewed- Developing abscess is noted to be subcentimeter and therefore too small for surgical or IR drainage. - Still with right flank pain today, but reports feeling better today than yesterday. - Tmax 37.6C this morning. Non-toxic appearing. VSS. - Labs reviewed - White count and creatinine normal. - Pt had a urine culture recently from [facility] - Primary service has requested results. - Blood cultures pending. On IV Ceftriaxone, follow cultures. - No acute intervention warranted at this time. - As long as she continues to clinically progress, would continue to monitor conservatively. - If she fails to show clinical improvement in the next 1 to 2 days, would have a low threshold to obtain repeat imaging. - Continue supportive care, antibiotic therapy, and management per primary team. - Will need extended course of PO antibiotics upon discharge per final cultures. - Will arrange outpatient f/u with our service. - will sign-off, please contact us with any further questions, concerns, or changes in patient status. Admission and Anticipated Discharge Date Admission Date: November 28, 2021 Supervising Physician Co-Signing Physician Notes Discussed patient with LEONARDO. Agree with plan. CT findings may represent bilateral pyelonephritis. Area of concern that may be developing abscess has no drainable collection at this time. Recommend conservative measures with antibiotics. Recommend repeat imaging if patient clinically worsens. If she were to develop an abscess that needed draining, she would require transfer to tertiary care center. Subjective Pt examined at bedside this AM. Awake, ambulating in room on arrival. Pt reports feeling better today than yesterday. Tmax 37.6 this morning. No chills. No nausea or vomiting. Reports she has decreased appetite, but did eat some breakfast. Still with left flank pain. Voiding without issue. No hematuria or dysuria. Review of Systems Constitutional: as per Subjective / HPI Gastrointestinal: as per Subjective / HPI Genitourinary: as per Subjective / HPI Physical Exam Constitutional: well developed and well nourished; no acute distress and not ill appearing Respiratory: normal respiratory effort and able to speak in complete sentences; no labored breathing and no audible wheezes Gastrointestinal (Abdomen): Inspection/Auscultation: abdomen normal to inspection; abdomen not distended Musculoskeletal: Head/Neck/Chest: normocephalic Skin: No visible rashes or lesions to exposed skin areas Neurologic: moves all extremities and awake Psychiatric: Orientation: alert, oriented x 3 and cooperative Genitourinary: Right flank tenderness with palpation Results & Data ([facility]) Vital Signs (Past 12 Hours) Vital Signs Temp Pulse Resp BP Pulse Ox 11/29/21 07:04 37.6 C H 68 16 111/70 96 PG Care Time/CCT Total # of Minutes Spent Total Time Spent with Patient: Total time spent is greater than 50% in coordination of care (as documented) at patient's floor/unit and/or counseling patient: Coding Level of Care Code 91506 Subseq Hosp Care Lvl 2 Diagnoses Acute pyelonephritis N10
[2021-11-29] MEDS ORDERED: cefTRIAXone SODIUM 1,000 MG in DEXTROSE 5% 50 ML IV SCH (11:00)
--- NOTE | 2021-11-29 14:40 | Hospitalist Progress Note ---
Date of Service November 29, 2021 Assessment & Plan (1) Acute pyelonephritis: Plan: Recent urinary tract infection that developed into complicated acute pyelonephritis with subsequent renal abscess formation. The patient is not septic at this time. Continue with IV Rocephin pending urology recommendations and will also request records from recent [facility] visit for urine culture from sample prior to starting ciprofloxacin. (2) Renal abscess, right: Plan: IV Rocephin as above. (3) Depression: Plan: Continue Wellbutrin and fluoxetine per home regimen. (4) DVT prophylaxis: Plan: Lovenox Full code PO Abx and DC tomorrow, Cipro x 10 Days, Start PO Cipro, DC CTX ROS-No Headache, No Visual Changes, + Nausea, No Vomiting, No Fever, No Chills, No Neck Pain or Stiffness, No Chest Pain, No Palpitations, No SOB, No MUNOZ, No Cough, No Sputum, No Wheezing, No Abdominal Pain, No Diarrhea, No Hematemesis, No Hemoptysis, No Unexpected Weight Loss, + Flank pain, No Melena, No Hematochezia, No Frequency, No Urgency, No Burning, No Hematuria, No Rashes, No Diaphoresis. Appetite is Normal Physical Exam Gen-AAO x 3, NAD, Afebrile Head-NCAT, EOMI, PERRLA, Anicteric Sclera, No Posterior Pharyngeal Erythema Neck-Supple, No JVD, No Thyromegaly, No Masses, No LAD, No Bruits Lungs-Clear to Auscultation Bilaterally, No Rales, No Rhonchi, No Wheezing, No Crepitus Chest-No S4, +S1, +S2, No S3, No Murmurs, No Rubs, No Gallops, No Ectopy Abdomen-Soft, Bowel Sounds Present, Non Tender, Non Distended, No Hepatomegaly, No Splenomegaly, No Palpable Masses, No Rebound, No Rigidity, No Guarding Musculoskeletal-Full Range of Motion Bilaterally, No CVAT Extremities-No Cyanosis, No Clubbing, No Edema Nuero-Cranial Nerves II-XII grossly intact, Motor WNL, DTRs WNL, Strength WNL, Non Focal Psych-Normal Mood Admission and Anticipated Discharge Date Admission Date: November 28, 2021 Subjective Pt examined at bedside this AM. Feeling a lot better Tmax 37.6 this morning. No chills. +nausea, No vomiting. Still with left flank pain. Voiding without issue. No hematuria or dysuria. Results & Data Results & Data ([facility]) Vital Signs (Past 12 Hours) Vital Signs Temp Pulse Resp BP Pulse Ox 11/29/21 07:04 37.6 C H 68 16 111/70 96
[2021-11-29] MEDS: ACETAMINOPHEN 325 MG TAB PO PRN (16:40)
[2021-11-29] MEDS: CIPROFLOXACIN 500 MG TAB PO SCH (20:36)
[2021-11-30] MEDS: ONDANSETRON INJ 2 MG/ML 2 ML VIAL IV PRN (04:22)
[2021-11-30] MEDS ORDERED: ONDANSETRON INJ 2 MG/ML 2 ML VIAL IV PRN (09:50)
[2021-11-30] MEDS ORDERED: PROMETHAZINE HCL 25 MG TAB PO PRN (09:51)
[2021-11-30] MEDS: ENOXAPARIN INJ 40 MG/0.4 ML SYR SQ SCH (10:50)
[2021-11-30] MEDS: CIPROFLOXACIN 500 MG TAB PO SCH (10:50)
[2021-11-30] MEDS: FLUoxetine HCL 20 MG CAP PO SCH (10:50)
[2021-11-30] MEDS: buPROPion HCl 75 MG TABLET PO SCH (10:50)
--- NOTE | 2021-11-30 10:59 | Discharge Summary ---
Date of Service November 30, 2021 Admission HPI Per Admitting Provider 31-year-old female presents with ongoing UTI symptoms for the past 1 to 2 weeks. She initially had vaginal itching without any discharge and took miconazole [id number] x2 then a course of Diflucan however pelvic pressure was present and continued. She then went to [facility] and reports a positive urinalysis. She was placed on ciprofloxacin and reports a fever for the first 3 days while on the ciprofloxacin. She took ibuprofen to help with the fever. Since that time she still has pelvic pressure when she is up and walking which is improved when she sitting or laying down. She denies any dysuria but still feels pressure when urinating. She does report right flank pain that she started noticing approximately 6 days ago. She came to the ER and underwent a CT abdomen pelvis with IV and oral contrast because of right lower quadrant abdominal pain and concern for appendicitis. She was found to have a normal appendix but evidence of pyelonephritis on the right with developing renal abscesses. She was called back in today for further evaluation and intravenous antibiotics. At this time she has no worsening of her symptoms but no improvement. She is afebrile and hemodynamically stable. She is oxygenating well on room air. She denies any chest pain, shortness of breath, fevers, chills or other issues today. She currently denies any vaginal discharge and has no concerns for or STDs at this time. Urine screen is negative. Admission Exam Per Admitting Provider CONSTITUTIONAL: [facility]NWD, vitals as above, generally well-appearing EYES: normal conjunctivae, no scleral icterus ENT: external ear and nose normal, MMM NECK: trachea midline RESPIRATORY: clear to auscultation bilaterally, no crackles, rales or wheezes, normal respiratory effort CARDIOVASCULAR: regular rate and rhythm, S1 and 2 heard without murmurs, gallops or rubs, no JVD, no peripheral edema CHEST: inspection of chest was normal GASTROINTESTINAL: normal bowel sounds, soft, TTP in RLQ, +CVA tenderness on the right MUSCULOSKELETAL: strength 5/5 throughout, head is normocephalic and atraumatic, SKIN: warm and dry, NEUROLOGIC: CN 2-12 grossly intact, no sensory deficit, normal cognition, normal speech, no tremor PSYCHIATRIC: alert cooperative and oriented to person, place and time. Euthymic mood, makes good eye contact, language grossly intact, recent and remote memory grossly intact. Principal Diagnosis (1) Acute pyelonephritis: (2) Renal abscess, right: (3) Depression: Discharge Exam See below Discharge Data Allergies Allergy/AdvReac Type Severity Reaction Status Date / Time Sulfa (Sulfonamide Allergy Intermediate HIVES Verified 11/28/21 13:12 Antibiotics) chlorhexidine Allergy Unknown Verified 11/28/21 13:12 nickel Allergy Unknown ITCHING Verified 11/28/21 13:12 sulfamethoxazole Allergy Unknown Verified 11/28/21 13:12 [From Bactrim] trimethoprim [From Bactrim] Allergy Unknown Verified 11/28/21 13:12 amoxicillin Allergy Rash Unverified 11/28/21 13:12 Consultations 11/28/21 12:22 ED Decision to Admit Stat 11/28/21 17:09 Consult Urology Routine Current Diagnoses Depression, unspecified (11/28/21) Acute pyelonephritis (11/28/21) Renal and perinephric abscess (11/28/21) Encounter for prophylactic measures, unspecified (11/28/21) Allergies Sulfa (Sulfonamide Antibiotics) Allergy (Intermediate, Verified 11/28/21 13:12) HIVES chlorhexidine Allergy (Unknown, Verified 11/28/21 13:12) nickel Allergy (Unknown, Verified 11/28/21 13:12) ITCHING sulfamethoxazole [From Bactrim] Allergy (Unknown, Verified 11/28/21 13:12) trimethoprim [From Bactrim] Allergy (Unknown, Verified 11/28/21 13:12) amoxicillin Allergy (Unverified 11/28/21 13:12) Rash Height/Weight/Isolation Height 5 ft 6 in Weight 62.9 kg Chemistry 11/28/21 11/29/21 10:45 06:08 Sodium 140 140 Potassium 3.6 3.5 Chloride 105 108 H Carbon Dioxide 31 26 Anion Gap 4 6 BUN 15 14 Creatinine 1.01 0.82 Glucose 88 82 Urinalysis 11/28/21 12:59 Urine Color Yellow Urine Appearance Clear Urine pH 5.5 Ur Specific [place] 1.016 Urine Protein Negative Urine Glucose (UA) Negative Urine Ketones Negative Urine Blood Negative Urine Nitrite Negative Urine Bilirubin Negative Microbiology 11/28/21 13:06 Blood Aerobic Blood Culture - Preliminary No growth in Aerobic bottle after 24 hours. 11/28/21 13:06 Blood Anaerobic Blood Culture - Preliminary No growth in Anaerobic bottle after 24 hours. 11/28/21 10:45 Blood Aerobic Blood Culture - Preliminary No growth in Aerobic bottle after 24 hours. 11/28/21 10:45 Blood Anaerobic Blood Culture - Preliminary No growth in Anaerobic bottle after 24 hours. Hospital Course (1) Acute pyelonephritis: Recent urinary tract infection that developed into complicated acute pyelonephritis with subsequent renal abscess formation. The patient is not septic. DC today on Cipro and Phenergan (2) Renal abscess, right: PO Cipro x 10 days (3) Depression: Continue Wellbutrin and fluoxetine per home regimen. (4) DVT prophylaxis: Full code PO Abx and DC today, Cipro x 10 Days, Phenergan for Nausea, RTW 12/07/@@ ROS-No Headache, No Visual Changes, + Nausea, No Vomiting, No Fever, No Chills, No Neck Pain or Stiffness, No Chest Pain, No Palpitations, No SOB, No MUNOZ, No Cough, No Sputum, No Wheezing, No Abdominal Pain, No Diarrhea, No Hematemesis, No Hemoptysis, No Unexpected Weight Loss, No Flank pain, No Melena, No Hematochezia, No Frequency, No Urgency, No Burning, No Hematuria, No Rashes, No Diaphoresis. Appetite is Normal Physical Exam Gen-AAO x 3, NAD, Afebrile Head-NCAT, EOMI, PERRLA, Anicteric Sclera, No Posterior Pharyngeal Erythema Neck-Supple, No JVD, No Thyromegaly, No Masses, No LAD, No Bruits Lungs-Clear to Auscultation Bilaterally, No Rales, No Rhonchi, No Wheezing, No Crepitus Chest-No S4, +S1, +S2, No S3, No Murmurs, No Rubs, No Gallops, No Ectopy Abdomen-Soft, Bowel Sounds Present, Non Tender, Non Distended, No Hepatomegaly, No Splenomegaly, No Palpable Masses, No Rebound, No Rigidity, No Guarding Musculoskeletal-Full Range of Motion Bilaterally, No CVAT Extremities-No Cyanosis, No Clubbing, No Edema Nuero-Cranial Nerves II-XII grossly intact, Motor WNL, DTRs WNL, Strength WNL, Non Focal Psych-Normal Mood Total Time Total Time Spent Total Time Spent (In Minutes): 45 mins Total Time Includes: Examination of the Patient, Discharge Planning, Medication Reconciliation and Communication With Other Providers Discharge Plan Discharge Items Patient Disposition: Home - Self-Care Reason For Visit: ACUTE PYELONEPHRITIS Discharge Diagnosis: Acute pyelonephritis Condition on Discharge: Good Health Concerns: Possibility of not keeping Cipro down and needing to come back for IV Antibiotics Activity: Per Instructions section Activity Comment: As tolerated, Back to work Thursday Lifting: Gradually increase as tolerated Bathing: No limitations Sexual Activity: When tolerated Exercise/Sports: Gradually increase as tolerated Driving/Machine Use: No limitations Weightbearing: Full weightbearing Non-emergency contact: Primary Care Provider and Urologist Call non-emergency contact if: you have any medication questions Follow-up/Referrals: Andrew Dalton MD [Physician] - (Within 2 weeks, Call for appt) Jenny Webster DO [Primary Care Provider] - (Date & Time 12/04/2021 1:40 PM Provider Jenny Webster DO [facility] ) Diet: Regular Addtl Attending Provider Instructions: As above Pending Studies at Discharge: No Stand-Alone Forms: My [facility], Smoking Cessation Medications and DC Order Prescriptions: New acetaminophen 325 mg Tablet 650 mg PO Q4H PRN (Reason: fever or pain) Qty: 60 RF: 0 ciprofloxacin HCl 500 mg Tablet 500 mg PO BID Qty: 20 RF: 0 promethazine 25 mg Tablet 12.5 mg PO Q6H PRN (Reason: nausea and vomiting) Qty: 30 RF: 0 Continued bupropion HCl [Wellbutrin] 100 mg Tablet 150 mg PO QAM RF: 0 fluoxetine 20 mg capsule 20 mg PO DAILY RF: 0 [place] (28) 0.3-30 mg-mcg tablet 1 tab PO HS RF: 0 Discharge Orders: Discharge Order (Routine); Ordered 11/30/21 Ordered By: Rohan Pino Admission Data Admit Date/Time: 11/28/21 12:27 Attending Provider: Rohan Pino Admit Provider: Elena Breaux Primary Care Provider: Jenny Webster Other Providers: Elena Breaux ; Chad Kyle
== END 2021-11-30 12:17 | disposition home or self-care (01) | DRG 690 ==
LOC: ED 10:21 → 3E 12:27 → SUATTDRO 12:27 → 3E 16:34